=== PATIENT | male | born 1965 | race Caucasian/White ===

== ENCOUNTER 2021-06-25 15:11 | Emergency (ER) | payer OTHER ==
[~2021-06-25] VITALS: Ht 167.6 cm; Wt 86.2 kg
[~2021-06-25 15:11] MED LIST: PERCOCET; TERA1 PO; XANEX
[2021-06-25] MEDS ORDERED: Prozac20 MG PO ×2 (16:26→16:36)
[2021-06-25] MEDS ORDERED: Prozac40 MG PO ×2 (16:26→16:36)
== END 2021-06-25 16:27 | disposition home or self-care (01) ==
LOC: ER 15:11
DX: F41.9 Anxiety disorder, unspecified (principal); F32.A Depression, unspecified; Z76.0 Encounter for issue of repeat prescription
CPT/HCPCS: 99281

== ENCOUNTER 2021-10-20 11:37 | Day surgery (SDC) | payer OTHER ==
[~2021-10-20] VITALS: Ht 170.2 cm; Wt 100.5 kg
[~2021-10-20 11:37] MED LIST changes: +Prozac20 MG PO; +Prozac40 MG PO
[2021-10-20] MEDS ORDERED: FAMO20 (13:06)
[2021-10-20] MEDS ORDERED: OXCARBAZEPINE150 M2 PO (13:06)
[2021-10-20] MEDS ORDERED: ATOR10 (13:08)
[2021-10-20] MEDS ORDERED: Amlodipine Bes2.5 MG (13:08)
[2021-10-20] MEDS ORDERED: TAMS.4ER PO (13:08)
[2021-10-20] MEDS ORDERED: ZYRTEC10 M3 (13:08)
[2021-10-20] MEDS ORDERED: LOSA50 PO (13:09)
[2021-10-20] MEDS ORDERED: GABA300 PO (13:10)
[2021-10-20] MEDS ORDERED: FINA5 (13:10)
[2021-10-20] MEDS ORDERED: Prozac40 MG PO (13:11)
--- NOTE | 2021-10-20 18:40 | NUR ---
10/20/21 184 MARINE LOZANO LATE ENTRY: CHARTED VITALS AND PAIN SCORE AND MEDICATION GIVEN ON VITAL RECORD ON WRONG PATIENT. TCR
--- NOTE | 2021-10-20 18:48 | NUR ---
10/20/211847 SULTANA FRANCISCO VERY HALLE PT. NO C/O PAIN.
== END 2021-10-20 17:00 | disposition home or self-care (01) ==
LOC: ORSCSDS 11:37
PROVIDERS: Orthopaedic Surgery
PROC: 01N50ZZ Release Median Nerve, Open Approach (ICD-10-PCS; principal; 2021-10-20 12:45)
DX: G56.02 Carpal tunnel syndrome, left upper limb (principal); F41.8 Other specified anxiety disorders; I10 Essential (primary) hypertension; K21.9 Gastro-esophageal reflux disease without esophagitis; E66.9 Obesity, unspecified; Z68.34 Body mass index [BMI] 34.0-34.9, adult; Z79.899 Other long term (current) drug therapy
CPT/HCPCS: J0690; J2250; J2704; J3010

== ENCOUNTER 2022-03-04 15:43 | Emergency (ER) | payer OTHER ==
[~2022-03-04 15:43] MED LIST changes: +ATOR10; +Amlodipine Bes2.5 MG; +FAMO20; +FINA5; +GABA300 PO; +LOSA50 PO; +OXCARBAZEPINE150 M2 PO; +TAMS.4ER PO; +ZYRTEC10 M3
[2022-03-04 17:38] LABS: BASOPHILS ABSOLUTE AUTO 0.05 K/mm3 (0.00-0.23); BASOPHILS PERCENT AUTO 1 % (0-2); EOSINOPHILS ABSOLUTE AUTO 0.08 K/mm3 (0.00-0.68); EOSINOPHILS PERCENT AUTO 1 % (0-6); Hematocrit 38.9 % (37.0-53.0); Hemoglobin 12.5 g/dL (13.5-17.5); IMMATURE GRAN ABSOLUTE AUTO 0.07 K/mm3 (0.00-0.10); IMMATURE GRAN PERCENT AUTO 1 % (0-1); LYMPHOCYTES ABSOLUTE AUTO 1.06 K/mm3 (0.84-5.20); LYMPHOCYTES PERCENT AUTO 12 % (21-46); MONOCYTES ABSOLUTE AUTO 0.75 K/mm3 (0.16-1.47); MONOCYTES PERCENT AUTO 8 % (4-13); Mean Corpuscular HGB Conc 32.1 g/dL (31.5-36.5); Mean Corpuscular Volume 90 fL (80-100); Mean Platelet Volume 10.6 fL (9.1-12.4); NEUTROPHILS ABSOLUTE AUTO 6.95 K/mm3 (1.96-9.15); NEUTROPHILS PERCENT AUTO 78 % (41-73); Platelet Count 285 K/mm3 (150-400); RDW Standard Deviation 46.5 fL (35.1-46.3); Red Blood Cell Count 4.31 M/mm3 (4.30-5.90); White Blood Cell Count 8.96 K/mm3 (4.00-11.30)
[2022-03-04 17:41] LABS: Source, Urine Clean Catch
[2022-03-04 17:48] LABS: Appearance, Urine Clear (Clear); Bilirubin, Urine Neg (Neg); Blood, Urine Neg (Neg); Color, Urine Yellow (P-Yellow); Glucose Qualitative, Urine Neg (Neg); Ketones, Urine Neg (Neg); Leukocyte Esterase, Urine Neg (Neg); Nitrite, Urine Neg (Neg); Protein, Urine 1+ (Neg); Specific Gravity, Urine 1.015 (1.003-1.022); Urobilinogen, Urine NORM (Normal)
[2022-03-04 18:16] LABS: Magnesium, Blood 2.4 mg/dL (1.6-2.4)
[2022-03-04 18:17] LABS: Albumin, Blood 3.6 g/dL (3.4-5.0); Bilirubin, Total 0.5 mg/dL (0.1-1.0); Bun/Creatinine Ratio 13.5 (12.0-20.0); Calcium, Blood 9.2 mg/dL (8.5-10.1); Creatinine, Blood 2.15 mg/dL (0.60-1.20); Globulin, Blood 3.7 g/dL (2.2-4.0); Potassium, Blood 3.8 mmol/L (3.5-5.5); Total Protein, Blood 7.3 g/dL (6.4-8.2)
[2022-03-04 18:18] LABS: U Amphetamine Screen DETECTED; U Barbituate Screen Not Detected; U Benzodiazapine Screen DETECTED; U Buprenorphine Screen Not Detected; U Cannabinoids Screen Not Detected; U Cocaine Screen Not Detected; U Methadone Screen Not Detected; U Methamphetamine Screen DETECTED; U Opiates Screen Not Detected; U Oxycodone Screen Not Detected; U Phencyclidine Screen Not Detected; U Propoxyphene Screen Not Detected
== END 2022-03-04 21:35 | disposition home or self-care (01) ==
LOC: ER 15:43
PROVIDERS: Student in an Organized Health Care Education/Training Program
DX: R11.2 Nausea with vomiting, unspecified (principal); I10 Essential (primary) hypertension; G47.33 Obstructive sleep apnea (adult) (pediatric); Z72.0 Tobacco use
CPT/HCPCS: 80053; 83735; 84484; 85025; 93005; 93010; 96374; 99284-25; A9270; J1885

== ENCOUNTER 2022-05-06 16:58 | Emergency (ER) | payer OTHER ==
[~2022-05-06] VITALS: Ht 170.2 cm; Wt 90.7 kg
[2022-05-06] MEDS ORDERED: SULTRIDS PO (18:34)
[2022-05-06] MEDS ORDERED: CEPH500 PO (18:34)
== END 2022-05-06 18:47 | disposition home or self-care (01) ==
LOC: ER 16:58
DX: L03.113 Cellulitis of right upper limb (principal)
CPT/HCPCS: A9270

== ENCOUNTER 2022-09-17 12:51 | Inpatient (IN) | payer OTHER ==
[~2022-09-17] VITALS: Ht 175.3 cm; Wt 76.7 kg
[~2022-09-17 12:51] MED LIST changes: -ATOR10; +ATOR10 PO; -Amlodipine Bes2.5 MG; +Amlodipine Bes2.5 MG PO; +CEPH500 PO; -FAMO20; +FAMO20 PO; -FINA5; +FINA5 PO; -LOSA50 PO; +LOSARTAN POTAS100 MG PO; +SULTRIDS PO; -ZYRTEC10 M3; +ZYRTEC10 M3 PO
[2022-09-17 13:14] LABS: PCO2 Arterial 50.7 mmHg (35-45); PO2 Arterial 258 mmHg (80-100); pH Blood Arterial 7.28 (7.35-7.45)
[2022-09-17 13:40] LABS: BASOPHILS ABSOLUTE AUTO 0.03 K/mm3 (0.00-0.23); BASOPHILS PERCENT AUTO 0 % (0-2); EOSINOPHILS ABSOLUTE AUTO 0.02 K/mm3 (0.00-0.68); EOSINOPHILS PERCENT AUTO 0 % (0-6); Hemoglobin 12.7 g/dL (13.5-17.5); IMMATURE GRAN ABSOLUTE AUTO 0.14 K/mm3 (0.00-0.10); IMMATURE GRAN PERCENT AUTO 2 % (0-1); LYMPHOCYTES ABSOLUTE AUTO 1.14 K/mm3 (0.84-5.20); LYMPHOCYTES PERCENT AUTO 15 % (21-46); MONOCYTES ABSOLUTE AUTO 0.36 K/mm3 (0.16-1.47); MONOCYTES PERCENT AUTO 5 % (4-13); Mean Corpuscular HGB 27.1 pg (26.0-34.0); Mean Corpuscular HGB Conc 30.2 g/dL (31.5-36.5); Mean Corpuscular Volume 90 fL (80-100); Mean Platelet Volume 9.8 fL (9.1-12.4); NEUTROPHILS ABSOLUTE AUTO 5.77 K/mm3 (1.96-9.15); NEUTROPHILS PERCENT AUTO 77 % (41-73); Platelet Count 275 K/mm3 (150-400); RDW Coefficient Variation 15.5 % (11.7-14.2); RDW Standard Deviation 51.8 fL (35.1-46.3); Red Blood Cell Count 4.68 M/mm3 (4.30-5.90); White Blood Cell Count 7.46 K/mm3 (4.00-11.30)
[2022-09-17 13:59] LABS: Albumin, Blood 3.3 g/dL (3.4-5.0); Albumin/Globulin Ratio 0.7 (0.8-1.8); Bilirubin, Total 0.5 mg/dL (0.1-1.0); Bun/Creatinine Ratio 19.1 (12.0-20.0); Calcium, Blood 9.4 mg/dL (8.5-10.1); Creatinine, Blood 1.62 mg/dL (0.60-1.20); Globulin, Blood 4.8 g/dL (2.2-4.0); Potassium, Blood 4.6 mmol/L (3.5-5.5); Total Protein, Blood 8.1 g/dL (6.4-8.2)
[2022-09-17 14:01] LABS: U Amphetamine Screen DETECTED; U Barbituate Screen Not Detected; U Benzodiazapine Screen Not Detected; U Buprenorphine Screen Not Detected; U Cannabinoids Screen Not Detected; U Cocaine Screen Not Detected; U Methadone Screen Not Detected; U Methamphetamine Screen DETECTED; U Opiates Screen Not Detected; U Oxycodone Screen Not Detected; U Phencyclidine Screen Not Detected; U Propoxyphene Screen Not Detected
[2022-09-17 14:15] LABS: Salicylate <1.7 mg/dL (2.8-20.0)
[2022-09-17 14:31] LABS: Acetaminophen, Random <2.0 ug/mL (10.0-30.0)
[2022-09-17 15:56] LABS: Base Excess Venous -0.5 mmol/L; Bicarbonate Venous 23.4 mmol/L (24.0-30.0); PCO2 Venous 50.8 mmHg (38-42); pH Blood Venous 7.31 (7.34-7.37)
[2022-09-17 16:12] LABS: Source, Urine Foley catheter
[2022-09-17 16:48] LABS: Appearance, Urine Hazy (Clear); Bilirubin, Urine Neg (Neg); Blood, Urine 4+ (Neg); Color, Urine Yellow (P-Yellow); Glucose Qualitative, Urine Neg (Neg); Ketones, Urine Neg (Neg); Leukocyte Esterase, Urine 1+ (Neg); Nitrite, Urine Neg (Neg); Protein, Urine 2+ (Neg); Specific Gravity, Urine 1.025 (1.003-1.022); Urobilinogen, Urine NORM (Normal)
--- NOTE | 2022-09-17 16:57 | NUR ---
JONO ARRIVES TO US AT 1515 FROM THE ED, PT HAS EVIDENCE OF BROWN/GREEN EMESIS, IRAHETA DRAINING TO GRAVITY, RESTRAINTS IN PLACE, VENTILATOR AT 20/450 PEEP 5, FIO2 40%. PT IS NOT RESPONSIVE TO COMMANDS OR TO VOICE. PT DOES W/D TO PAIN. I/O IN THE RIGHT KAY, 20G DEB, PG PLACED BY CHARGE NURSE. FLUID BOLUS GIVEN PER ORDERS FOR LOW BP, NOREPINEPHRINE STARTED PER ORDER OF ADMIT PROVIDER, VERSED DRIP TURNED OFF TO ASSESS PT RESPONSE. PT CONTINUES WITH NO PURPOSEFUL MOVEMENT, SOME "BUCKING OF THE VENTILATOR". ORDERS PROPOFOL IN PLACE OF THE VERSED DRIP, STARTED AT 15MCG TO HELP TOLERATE THE VENTILATOR. RESTRAINTS REMOVED PT WITHOUT ANY PURPOSEFUL MOVEMENTS. SEE FLOWSHEET FOR DETAILS.
[2022-09-17 17:08] LABS: Red Blood Cells, Urine 25-50 /hpf (0-2); Transitional Epithelial Cells Rare /hpf (0-Rare)
[2022-09-17 17:09] LABS: Bacteria Mod /hpf; Renal Epithelial Rare /hpf (0-Rare); Squamous Epithelial Cells Not Seen /hpf (Few)
--- NOTE | 2022-09-17 18:07 | NUR ---
GIRLFRIEND "TRENT" CALLS IN TO CHECK ON HIM. STATES HE DOESN'T HAVE ANY FAMILY. SHE IS TOLD THE NAME OF THE AUNT, STATES THAT SHE DOESN'T KNOW WHO THAT IS BUT WILL TALK TO THE ROOMMATE,
--- NOTE | 2022-09-17 18:30 | NUR ---
VENTILATOR ALARMS BEGAN SOUNDING, UPON ASSESSMENT OF PATIENT HE WAS NOT GETTING HIS VOLUMES. ATTEMPTED ENDOTRACHEAL SUCTIONING WITH THICK COTO BROWN RETURN, STILL UNABLE TO GET GOOD VOLUMES, BEGAN BAGGING PATIENT AND CALLED RESP.THERAPY. TARYN CAME AND CHANGED VENT SETTINGS TO PRESSURE CONTROL AND ABLE TO GET IMPROVED VOLUMES. SATS RETURNED TO 98-99%.
[2022-09-18 05:03] LABS: PCO2 Arterial 36.7 mmHg (35-45); PO2 Arterial 88.5 mmHg (80-100); pH Blood Arterial 7.48 (7.35-7.45)
[2022-09-18 05:33] LABS: Hematocrit 31.3 % (37.0-53.0); Hemoglobin 10.3 g/dL (13.5-17.5); Mean Corpuscular HGB 27.7 pg (26.0-34.0); Mean Corpuscular HGB Conc 32.9 g/dL (31.5-36.5); Mean Platelet Volume 9.5 fL (9.1-12.4); NRBC ABSOLUTE 0.03 K/mm3 (0.00-0.02); NRBC Auto 0.5 /100 WBC (0.0-0.2); Platelet Count 217 K/mm3 (150-400); RDW Coefficient Variation 15.9 % (11.7-14.2); RDW Standard Deviation 48.8 fL (35.1-46.3); Red Blood Cell Count 3.72 M/mm3 (4.30-5.90); White Blood Cell Count 6.03 K/mm3 (4.00-11.30)
[2022-09-18 05:55] LABS: Mean Corpuscular Volume 85 fL (80-100)
[2022-09-18 06:05] LABS: Magnesium, Blood 2.3 mg/dL (1.6-2.4)
[2022-09-18 06:11] LABS: Albumin, Blood 2.4 g/dL (3.4-5.0); Albumin/Globulin Ratio 0.7 (0.8-1.8); Bilirubin, Total 0.6 mg/dL (0.1-1.0); Bun/Creatinine Ratio 27.2 (12.0-20.0); Creatinine, Blood 1.14 mg/dL (0.60-1.20); Globulin, Blood 3.6 g/dL (2.2-4.0); Potassium, Blood 4.3 mmol/L (3.5-5.5)
--- NOTE | 2022-09-18 06:45 | NUR ---
SHIFT SUMMARY NO ACUTE CHANGES DURING NOC. REMAINS INTUBATED- AC/PC RATE 20, PI 25, PEEP 5, FIO2 35%. SEDATED WITH PROPOFOL BETWEEN 15-25MCG/KG/AR. NOW INFUSING AT 25MCG/KG/MIN. OPENS EYES TO STIMULI. MINIMAL MOVEMENT NOTED IN UPPER EXTREMITIES. NOT FOLLOWING ANY COMMANDS. WITHDRAWS EXTREMITIES TO NOXIOUS STIMULI. CLARITA. OG TO LIS WITH SCANT DRAINAGE. IRAHETA PATENT AND DRAINING. LR INFUSING AT 125MLS/HR. INCONTINENT OF LOOSE BROWN STOOL X 2 DURING SHIFT. VSS. MONITOR SHOWS NSR, RATE 80s-90s. WILL REPORT TO ONCOMING RN WHEN AVAILABLE.
[2022-09-18 07:11] LABS: BAND PERCENT MAN 26 % (0-8); BASOPHILS PERCENT MAN 0 % (0-2); EOSINOPHILS ABSOLUTE MAN 0.06 K/mm3 (0.00-0.68); EOSINOPHILS PERCENT MAN 1 % (0-6); LYMPHOCYTES ABSOLUTE MAN 0.66 K/mm3 (0.84-5.20); LYMPHOCYTES PERCENT MAN 11 % (21-46); MONOCYTES PERCENT MAN 5 % (4-13); SEG NEUTROPHILS PERCENT MAN 57 % (41-73); TOTAL CELLS COUNTED 100
--- NOTE | 2022-09-18 18:18 | NUR ---
Shift summary. Pt rested in bed throughout shift, on ventilator, see RT assessments for settings. Titrated propofol off early in the shift, pt slowly became more responsive throughout shift, began to follow commands occasionally and focus on staff. At approximately 1630 pt became very agitated, thrashing in bed, trying to reach his ETT and pull it out. Ativan and fentanyl given, see emar. Propofol restarted for sedation, currently infusing at 25 mcg/kg/min. Pt sedated currently, appears comfortable. LR infusing at 100 ml/hr. OG tube in place. Connolly catheter in place. SWB restraints in place. See shift assessment for further details. Will continue to monitor and report off to susu ANNE.
[2022-09-19 04:43] LABS: BASOPHILS ABSOLUTE AUTO 0.02 K/mm3 (0.00-0.23); BASOPHILS PERCENT AUTO 0 % (0-2); EOSINOPHILS ABSOLUTE AUTO 0.16 K/mm3 (0.00-0.68); EOSINOPHILS PERCENT AUTO 3 % (0-6); Hematocrit 30.8 % (37.0-53.0); Hemoglobin 10.2 g/dL (13.5-17.5); IMMATURE GRAN ABSOLUTE AUTO 0.03 K/mm3 (0.00-0.10); IMMATURE GRAN PERCENT AUTO 1 % (0-1); LYMPHOCYTES ABSOLUTE AUTO 1.19 K/mm3 (0.84-5.20); LYMPHOCYTES PERCENT AUTO 20 % (21-46); MONOCYTES PERCENT AUTO 7 % (4-13); Mean Corpuscular HGB 27.6 pg (26.0-34.0); Mean Corpuscular HGB Conc 33.1 g/dL (31.5-36.5); Mean Corpuscular Volume 83 fL (80-100); Mean Platelet Volume 9.5 fL (9.1-12.4); NEUTROPHILS ABSOLUTE AUTO 4.03 K/mm3 (1.96-9.15); NEUTROPHILS PERCENT AUTO 69 % (41-73); Platelet Count 194 K/mm3 (150-400); RDW Standard Deviation 49.1 fL (35.1-46.3); White Blood Cell Count 5.83 K/mm3 (4.00-11.30)
[2022-09-19 05:02] LABS: Magnesium, Blood 1.9 mg/dL (1.6-2.4)
[2022-09-19 05:03] LABS: Bun/Creatinine Ratio 24.9 (12.0-20.0); Calcium, Blood 8.4 mg/dL (8.5-10.1); Creatinine, Blood 0.92 mg/dL (0.60-1.20); Phosphorus, Blood 1.3 mg/dL (2.5-4.9); Potassium, Blood 3.6 mmol/L (3.5-5.5)
--- NOTE | 2022-09-19 06:48 | NUR ---
SHIFT SUMMARY NO ACUTE CHANGES. REMAINS INTUBATED- AC/PC RATE 20, PI 25, PEEP 5, FIO2 35%. SEDATED WITH PROPOFOL AT 25MCG/KG/MIN T/O NOC. MEDICATED WITH ATIVAN 2MG IV X 1 DOSE FOR AGITATION AND FENTANYL 50MCG IV X 1 DOSE FOR NOTED GRIMACING. VSS. MONITOR SHOWS NSR, RATE 90S. TMAX 99.7. OG TO LIS WITH SMALL AMOUNT OF YELLOWISH-GREEN DRAINAGE. INCONTINENT OF LOOSE, PASTY STOOL X 2. IRAHETA PATENT AND DRAINING TO GRAVITY. LR INFUSING AT 100MLS/HR PER ORDER. WILL REPORT TO ONCOMING WHEN AVAILABLE.
--- NOTE | 2022-09-19 07:18 | NUR ---
Assumed care. Report received from nightshift RN. Pt in bed, sedated and ventilated via ETT. Vent settings: AC/PC 20/25/5/35%. Propofol infusing at 25 mcg/kg/min, LR infusing at 100 ml/hr. Connolly catheter in place. No acute needs ATT. Continue to monitor.
--- NOTE | 2022-09-19 18:41 | NUR ---
Shift summary. Pt rested in bed throughout shift, extubated at 1620 with good results. On 02 via NC at 2 L/min. Pt is awake and alert, following commands, does not remember events leading up to hospitalization. See assessments/notes for further details. Will continue to monitor and report off to susu ANNE.
--- NOTE | 2022-09-19 20:15 | NUR ---
ASSUMPTION OF CARE ASSUMED CARE OF PATIENT @ 1915. UPON ASSESSMENT, PATIENT TEARFUL, SPEAKING WITH HIS GILALINRIEND AT BEDSIDE. FOLLOWED SIMPLE COMMANDS. ORIENTED TO SELF ONLY. PER GIRLFRIEND, PATIENT STATED TO HER THAT HE WAS SEEING "DARK THINGS" THAT WERE INTENDING TO HARM HIM. PATIENT COUGHING, AND SUBSEQUENTLY REPORTING PAIN IN HIS CHEST WALL. MEDICATED WITH PRN FENTANYL. PATIENT BECAME INCREASINGLY MORE AGITATED, YELLING AT STAFF, STATING THAT HE WANTED TO LIVE AND SOMETHING WAS TRYING TO KILL HIM. RESISTIVE TO CARE AND UNABLE TO REDIRECT. PATIENT MORE TACHYCARDIC AND TACHYPNIC, WELL HYPERTENSIVE. DR MUNIZ AT BEDSIDE TO EVALUATE; GIVEN ATIVAN AND RECEIVED ORDERS FOR PRECEDEX GTT.
[2022-09-20 03:42] LABS: BASOPHILS ABSOLUTE AUTO 0.02 K/mm3 (0.00-0.23); BASOPHILS PERCENT AUTO 0 % (0-2); EOSINOPHILS ABSOLUTE AUTO 0.17 K/mm3 (0.00-0.68); EOSINOPHILS PERCENT AUTO 3 % (0-6); Hematocrit 32.9 % (37.0-53.0); Hemoglobin 10.9 g/dL (13.5-17.5); IMMATURE GRAN ABSOLUTE AUTO 0.04 K/mm3 (0.00-0.10); IMMATURE GRAN PERCENT AUTO 1 % (0-1); LYMPHOCYTES ABSOLUTE AUTO 0.86 K/mm3 (0.84-5.20); LYMPHOCYTES PERCENT AUTO 14 % (21-46); MONOCYTES PERCENT AUTO 8 % (4-13); Mean Corpuscular HGB 27.7 pg (26.0-34.0); Mean Corpuscular HGB Conc 33.1 g/dL (31.5-36.5); Mean Corpuscular Volume 84 fL (80-100); Mean Platelet Volume 9.4 fL (9.1-12.4); NEUTROPHILS ABSOLUTE AUTO 4.69 K/mm3 (1.96-9.15); NEUTROPHILS PERCENT AUTO 75 % (41-73); Platelet Count 225 K/mm3 (150-400); RDW Coefficient Variation 15.6 % (11.7-14.2); RDW Standard Deviation 47.7 fL (35.1-46.3); Red Blood Cell Count 3.93 M/mm3 (4.30-5.90); White Blood Cell Count 6.28 K/mm3 (4.00-11.30)
[2022-09-20 04:01] LABS: Bun/Creatinine Ratio 16.2 (12.0-20.0); Calcium, Blood 8.3 mg/dL (8.5-10.1); Creatinine, Blood 0.86 mg/dL (0.60-1.20); Potassium, Blood 3.6 mmol/L (3.5-5.5)
--- NOTE | 2022-09-20 06:26 | NUR ---
SHIFT SUMMARY OVERNIGHT, PRECEDEX STARTED FOR AGITATION. PATIENT MUCH MORE CALM AND REDIRECTABLE SHIFT PROGRESSED. ALERT TO SELF, AND INTERMITTENTLY TO PLACE. ZAMARRIPA; FOLLOWS COMMANDS. C/O CHEST AND RIB PAIN; MEDICATED WITH FENTANYL, SEE MAR. PAIN WELL CONTROLLED AT THIS TIME. MONITOR SHOWING SR/ST, HR 90-100S. SBP 120-150S. 2L NC. PATIENT HAS FREQUENT, NON-PRODUCTIVE COUGH, WHICH EXACERBATES HIS RIB PAIN. NPO. X1 SMALL BM. OVER 4L URINE OUTPUT PER IRAHETA. LR AND LOW DOSE PRECEDEX INFUSING AT THIS TIME. SPOKE TO BOTH PATIENT'S GIRLFRIEND TRENT WELL LUIS, WHOM PATIENT REFERS TO HIS MOTHER. BOTH UPDATED ON PATIENT'S CONDITION AND PLAN OF CARE.
--- NOTE | 2022-09-20 18:32 | NUR ---
Shift summary. Assumed care at approximately 0700. Pt rested in bed throughout shift, no acute events. Pt became tearful and agitated this afternoon, unable to redirect. Precedex infusing at 0.7 mcg/kg/hr. LR TKO. VS stable, see chart for further information. Will continue to monitor and report off to susu ANNE.
[2022-09-20 20:17] LABS: Vancomycin, Trough 12.2 ug/mL (5.0-10.0)
--- NOTE | 2022-09-20 22:43 | NUR ---
ASSUMPTION OF CARE AT BEGINNING OF SHIFT, PATIENT DISORIENTED. AGITATED, TRYING TO CLIMB OVER SIDE RAILS, STATING HE "NEEDS TO HAVE IT!" BUT UNABLE TO SPECIFY HIS NEEDS. UNABLE TO REDIRECT. GIVEN X1 DOSE OF ATIVAN. PRECEDEX CONTINUES AT 0.7MCG/KG/MIN. BECOMES VERY TEARFUL AND RESTLESS WHEN ATTEMPTING TO REORIENT TO PLACE, SITUATION. MONITOR SHOWING SR. HYPERTENSIVE, SBP 150S. 2L NC. WILL CONTINUE TO MONITOR.
[2022-09-21 04:14] LABS: BASOPHILS ABSOLUTE AUTO 0.03 K/mm3 (0.00-0.23); BASOPHILS PERCENT AUTO 1 % (0-2); EOSINOPHILS ABSOLUTE AUTO 0.17 K/mm3 (0.00-0.68); EOSINOPHILS PERCENT AUTO 3 % (0-6); Hematocrit 34.2 % (37.0-53.0); Hemoglobin 11.5 g/dL (13.5-17.5); IMMATURE GRAN ABSOLUTE AUTO 0.09 K/mm3 (0.00-0.10); IMMATURE GRAN PERCENT AUTO 2 % (0-1); LYMPHOCYTES ABSOLUTE AUTO 0.86 K/mm3 (0.84-5.20); LYMPHOCYTES PERCENT AUTO 15 % (21-46); MONOCYTES ABSOLUTE AUTO 0.67 K/mm3 (0.16-1.47); MONOCYTES PERCENT AUTO 11 % (4-13); Mean Corpuscular HGB 27.6 pg (26.0-34.0); Mean Corpuscular HGB Conc 33.6 g/dL (31.5-36.5); Mean Corpuscular Volume 82 fL (80-100); Mean Platelet Volume 9.4 fL (9.1-12.4); NEUTROPHILS PERCENT AUTO 69 % (41-73); Platelet Count 260 K/mm3 (150-400); RDW Coefficient Variation 14.8 % (11.7-14.2); RDW Standard Deviation 44.5 fL (35.1-46.3); Red Blood Cell Count 4.16 M/mm3 (4.30-5.90); White Blood Cell Count 5.92 K/mm3 (4.00-11.30)
[2022-09-21 04:31] LABS: Bun/Creatinine Ratio 17.4 (12.0-20.0); Calcium, Blood 8.9 mg/dL (8.5-10.1); Creatinine, Blood 0.75 mg/dL (0.60-1.20); Potassium, Blood 3.7 mmol/L (3.5-5.5)
--- NOTE | 2022-09-21 06:44 | NUR ---
SHIFT SUMMARY PATIENT REMAINED CONFUSED OVERNIGHT. INTERMITTENTLY AGITATED, PULLING AT WIRES, CLIMBING OUT OF BED, DELIRIOUS. DIFFICULT TO REDIRECT AT TIMES. CONTINUES ON PRECEDEX AND GIVEN PRN ATIVAN X2. MEDICATED FOR RIB PAIN S/P COMPRESSIONS WITH PRN FENTANYL. MONITOR SHOWING SR. HYPERTENSIVE, SBP 120-160S. REQUIRED PRN HYDRALAZINE X2. NPO. X2 BMS. ADEQUATE URINE OUTPUT VIA IRAHETA. NO FURTHER CONCERNS.
--- NOTE | 2022-09-21 12:22 | NUR ---
JONO BECAME VERY TEARFUL WHILE WORKING WITH PT/OT, HE WAS BEING REORIENTED TO THE SITUATION AND HIS SURROUNDINGS. HE IS UNABLE TO MAKE FINE DEXTERITY MOVEMENTS, ie GRABBING THE TISSUE AND WIPING HIS NOSE. HE MOVES HIS ARMS AT THE ELBOWS AND IS UNABLE TO DO FLEX/EXTENSION WITH THE WRIST. HE IS BEING FED HIS MECHANICAL SOFT LUNCH HE DOESN'T HAVE ANY TEETH. OVERALL CLEARING AND COOPERATIVE. ABLE TO FOLLOW SIMPLE COMMANDS. CONTINUES TO NOT REMEMBER WHAT WAS TOLD TO HIM MOMENTS BEFORE.
--- NOTE | 2022-09-21 16:21 | NUR ---
Patient is tearful as he explains how confused he is about what happened, how he go to the hospital and what the plan of care is. He tells me he has a girlfriend and a dtr. He tells me that he he is alone and scared. I explain about our staff and our compassion and care for his personhood and his medical recovery. I provide therapeutic listening, a calming presence and hold his hand to reassure him. He voices much appreciation and shows signs of being comforted. I will continue to remain available to patient and fmaily.
--- NOTE | 2022-09-21 18:38 | NUR ---
JONO BEGAN THE DAY DIFFICULT TO AROUSE AND UNABLE TO ANSWER QUESTIONS R/T HIS MEMORY. HE IS NOW ABLE TO RECALL FAMILY MEMBERS AND FRIENDS, HE HAS BEEN ABLE TO SPEAK ON THE PHONE WITH TWO DIFFERENT PEOPLE. HE CONTINUES TO BE FOR- GETFUL AND NEED REORIENTATION AND REDIRECTION. HE IS ABLE TO ASSIST WITH HIS CARE FOR LINEN CHANGE AND USE OF THE BEDPAN. HE HAS HAD 4 BM'S THIS SHIFT AND OVER 1L OF URINE OUTPUT. HE WAS ABLE TO EAT LUNCH AND DINNER OF MECHANICAL SOFT DIET. HE HAS NOT BEEN GIVEN ANY ADJUNCT TO THE PRECEDEX WHICH IS DOWN TO 0.4 MCG AND HE HAS DONE WELL TODAY. HE HAS BEEN VERY EMOTIONAL INREGARDS TO LEARNING WHAT TRANSPIRED FOR HIM TO BE HERE. HE CONTINUES TO TRY TO MAKE HIS NEEDS KNOWN.
--- NOTE | 2022-09-21 20:55 | NUR ---
ASSUMED CARE: Patient cooperative and pleasant but confused. Oriented to self only and occasionally to place with severe short term memory loss. 2029- Requesting pain meds for back pain but declines tylenol. Also restless and requests sleeping pill. Called Dr. Townsend for orders. 2049- Medicated for pain and insomnia. Patient starting to get more restless and confused, does not know he is in the hospital and is trying to climb out of bed.
--- NOTE | 2022-09-22 04:58 | NUR ---
SHIFT SUMMARY: Patient progressing well overnight. Able to wean off oxygen. Precedex off as of 0500 this AM. He is mildly anxious and restless, but not agitated or aggressive. He complains of pain despite receiving pain meds, does not appear painful. Short term memory is extremely poor. Repeats questions and conversations, does not remember information from 1 minute prior and needs frequent reorienting to surroundings. Only consistently oriented to self. Still weak/ deconditioned with poor fine motor skill. Difficulty grasping spoon to feed himself
[2022-09-22 05:09] LABS: Albumin, Blood 2.6 g/dL (3.4-5.0); Anion Gap 4 mmol/L (6-16); Blood Urea Nitrogen 13 mg/dL (8-24); Bun/Creatinine Ratio 15.2 (12.0-20.0); CO2, Blood 27 mmol/L (21-32); Calcium, Blood 9.2 mg/dL (8.5-10.1); Chloride, Blood 105 mmol/L (98-108); Creatinine, Blood 0.86 mg/dL (0.60-1.20); Glomerular Filtration Rate 102 (60-); Glucose, Blood 137 mg/dL (70-99); Potassium, Blood 3.9 mmol/L (3.5-5.5); Sodium, Blood 136 mmol/L (136-145)
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
--- NOTE | 2022-09-22 13:37 | NUR ---
"Spiritual Care | Nurse Request Pt. is under the care of another vascular nurse, but I did talk to him for a couple minutes. Pt. displayed evidence of confusion regarding where he was located. This vascular nurse gave encouragement to Pt. and supported the theraputic care of his nursing team. Contacted the Pts. vascular nurse for further follow up."
--- NOTE | 2022-09-22 14:30 | NUR ---
FALL/MEDICAL TRANSFER/SHIFT SUMMARY NEURO REMAINS UNCHANGED. PT ORIENTED TO SELF ONLY. NEEDS FREQUENT REORIENTATION. IMPULSIVE. TAB ALARM PLACED FOR SAFETY. PT FREQUENTLY GETS OUT OF CHAIR. BY END OF SHIFT, PT REPLACING ALARMING DEVICE ON TAB ALARM TO SUSPEND ALARM. CAMERA MONITORING IN PLACE, INCREASED STAFF AWARENESS AND VISUALIZATION. PT HAD TWO FALLS, ONE SLIDE FROM RECLINER, ONE FALL FORWARD. SEE FALL ASSESSMENTS. LUNGS DIM, ON RA. SR, RATE 90'S. PT WORKED c PT/OT/SPEECH THIS SHIFT. CONTINUES TO HAVE POOR FINE MOTOR CONTROL. REPORT TO ZENA ANNE. PT TRANSFERRED TO [facility].
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
--- NOTE | 2022-09-22 14:57 | NUR ---
FALL AND TRANSFER PT FELL X2 IN ICU. PRIOR TO TRANSFER, ICU CHARGE CALLED, AND REQUESTED A BEDSIDE SITTER FOR PT. WAS AGREED UPON PRIOR TO TRANSFER. AFTER ARRIVAL THE SITTER WAS THEN DECLINED BY ADMIN. BED ALARM ON. RAILS X3 UP, SLIPPY SOCKS ON. BED LOW, CALL LIGHT WITH IN REACH. REORIENTING CONSTANTLY. POOR RECALL. CONTINUE POC.
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
--- NOTE | 2022-09-22 18:05 | NUR ---
BEHAVIOR GIRLFRIEND AT BEDSIDE FOR ABOUT 30 MINUTES. PT IS ESCALATING SLOWLY. MORE VULGAR, MORE DEMANDING. MORE SWEARING. HE JUST DEMANDED THAT SHE "SUCK MY MARGARET." ATIVAN 2MG AND FENTANYL 25 MCH ALREADY GIVEN WHEN THE SWEARING STARTED. CONTINUE POC.
--- NOTE | 2022-09-23 04:55 | NUR ---
PATIENT CONFUSED, PATIENT COMBATIVE AND TRYING TO LEAVE FACILITY AT BEGINNING OF SHIFT, COMPLANING OF LOTS OF PAIN, CALLED DR CR AND CHANGED PAIN MEDICATION ORDERS WHICH SEEMED TO HELP TREMENDOUSLY, ONCE PATIENT MEDICATED APPROPRIATLEY HE WAS ABLE TO SLEEP COMFORTABLY
--- NOTE | 2022-09-23 18:11 | NUR ---
PATIENT SLEPT MOST OF THIS SHIFT. AGITATED THIS AM DURING ASSESSMENT, BUT COOPERATIVE THE REST OF THIS SHIFT. ATE LUNCH AND DINNER WITH ASSISTANCE. ABLE TO MAKE NEEDS KNOWN. 1:1 SITTER THROUGHOUT THE SHIFT. MEDICATED WITH OXYCODONE FOR CHEST PAIN, WITH STATED RELIEF. SKIN INTACT. VSS, ON RA. NO ACUTE CHANGES THIS SHIFT.
[2022-09-23] MEDS ORDERED: COLACE100 MG PO (20:29)
[2022-09-24 09:31] LABS: Hematocrit 43.7 % (37.0-53.0); Mean Corpuscular HGB 27.3 pg (26.0-34.0); Mean Corpuscular Volume 85 fL (80-100); Platelet Count 325 K/mm3 (150-400); RDW Coefficient Variation 15.3 % (11.7-14.2); RDW Standard Deviation 47.9 fL (35.1-46.3); Red Blood Cell Count 5.13 M/mm3 (4.30-5.90); White Blood Cell Count 5.75 K/mm3 (4.00-11.30)
[2022-09-24 09:46] LABS: Albumin, Blood 2.7 g/dL (3.4-5.0); Anion Gap 4 mmol/L (6-16); Blood Urea Nitrogen 14 mg/dL (8-24); Bun/Creatinine Ratio 15.5 (12.0-20.0); CO2, Blood 28 mmol/L (21-32); Chloride, Blood 104 mmol/L (98-108); Creatinine, Blood 0.91 mg/dL (0.60-1.20); Glomerular Filtration Rate 99 (60-); Glucose, Blood 152 mg/dL (70-99); Phosphorus, Blood 4.5 mg/dL (2.5-4.9); Potassium, Blood 4.4 mmol/L (3.5-5.5); Sodium, Blood 136 mmol/L (136-145); Vancomycin, Trough 17.4 ug/mL (5.0-10.0)
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
--- NOTE | 2022-09-24 18:35 | NUR ---
PATIENT HAD A GOOD DAY. WORKED WITH PT AND IS ABLE TO WALK TO RESTROOM WITH GB AND 1-2 ASSIST. GOOD APPETITE, ATE 100% OF ALL MEALS. CONTINENT OF URINE AND STOOL. PLEASANT AND COOPERATIVE WITH CARE. 1:1 SITTER D/C'D, FALL PRECAUTIONS IN PLACE. PATIENT GIVEN ATIVAN X1 TODAY FOR ANXIETY WITH GOOD RELIEF. OXYCODONE USED TO TREAT CHEST PAIN. PATIENT VERY PAINFUL WITH COUGHING. SKIN INTACT. POWERGLIDE TO MARTHA, DOES NOT DRAW. VSS, ON RA. NEEDS ASSISTANCE WITH FEEDING D/T POOR FINE MOTOR SKILLS. PATIENT SWITCHED TO SOFT FINGER FOODS FOR DINNER AND DID MUCH BETTER. SHORT TERM MEMORY POOR, PATIENT FREQUENTLY ASKS SAME QUESTIONS OVER AGAIN. A/O TO SELF AND SOME OF HIS FRIENDS. TYRON HE WAS IN [place] TODAY AND THAT THE YEAR WAS 2020.
--- NOTE | 2022-09-25 05:48 | NUR ---
PT IMPULSIVE, FORGETFUL, REDIRECTABLE, AOX1. PRN OXYCODONE 10 MG GIVEN Q4. ATIVAN 2 MG GIVEN X2. DID NOT SLEEP MUCH. CONTINENT OF BLADDER, NO BM. VERY UNSTEADY GAIT, WALKS WITH GB. BED ALARM IN PLACE, HIGH FALL RISK.
--- NOTE | 2022-09-25 16:18 | NUR ---
SHIFT SUMMARY: PT A&O X2, CONFUSED, COOPERATIVE AND COMMUNICATES WITH STAFF. PT CONFUSED ON TIME AND CURRENT SITUATION. PT AT THE BEGINNING OF THE SHIFT CALM AND COMMUNICATING WITH STAFF SITTING IN THE HALLWAY. PT HAD NO PAIN OR DISCOMFORT. PT TOOK MEDICATION WHOLE WITH WATER. PT AT LUNCH TIME BECAME AGITATED AND ANXIOUS. PT WAS ABLE TO BE CALMLY REASSURED VERBALLY BY STAFF. PT BECAME MODERATLY ANXIOUS AND AGITATED AND RECEVIED ATIVAN 2MG/ML IV. PT VERBALLY STATED WANTING TO LEAVE AMA. CN, JAMES AND PROVIDER NOTIFIED OF PT WANTING TO LEAVE AMA. PT ABLE TO CALM DOWN TO STAYING IN THE HOSPITAL FOR TREATMENT. PT IN ROOM, ANXIOUS, UNSTEADY ON FEET WITH CHAIR ALARM ARMED.
[2022-09-26 05:59] LABS: Hematocrit 41.5 % (37.0-53.0); Hemoglobin 13.4 g/dL (13.5-17.5); Mean Corpuscular HGB 26.8 pg (26.0-34.0); Mean Corpuscular HGB Conc 32.3 g/dL (31.5-36.5); Mean Corpuscular Volume 83 fL (80-100); Mean Platelet Volume 8.9 fL (9.1-12.4); Platelet Count 416 K/mm3 (150-400); RDW Coefficient Variation 14.8 % (11.7-14.2); RDW Standard Deviation 44.9 fL (35.1-46.3); White Blood Cell Count 6.47 K/mm3 (4.00-11.30)
[2022-09-26 06:21] LABS: Anion Gap 6 mmol/L (6-16); Blood Urea Nitrogen 15 mg/dL (8-24); Bun/Creatinine Ratio 18.4 (12.0-20.0); CO2, Blood 28 mmol/L (21-32); Calcium, Blood 9.5 mg/dL (8.5-10.1); Chloride, Blood 105 mmol/L (98-108); Creatinine, Blood 0.82 mg/dL (0.60-1.20); Glomerular Filtration Rate 103 (60-); Glucose, Blood 116 mg/dL (70-99); Phosphorus, Blood 4.7 mg/dL (2.5-4.9); Potassium, Blood 3.6 mmol/L (3.5-5.5); Sodium, Blood 139 mmol/L (136-145)
--- NOTE | 2022-09-26 06:34 | NUR ---
PT FELL X2 LAST NIGHT. NO APPARENT INJURIES. VSS. PLACED PATIENT IN CAROLYN VEST RESTRAINT DUE TO IMPULSIVENESS, CONFUSION, FALLS BUT PATIENT UNTIED ONE SIDE. PLACED PATIENT IN BUE LOCK RESTRAINTS, NONVIOLENT. ATIVAN GIVEN NEARLY Q2, ZYPREXA X1. PATIENT BEGAN TO CALM DOWN NEAR END OF SHIFT, INTERMITTENT EFFORTS TO GET OUT OF BED/RESTRAINTS CONTINUE. CONTINUE TO MONITOR.
--- NOTE | 2022-09-26 08:00 | NUR ---
pt not responding to staff, not oriented, or redirectable, is becoming agitated, ativan given, pt is tuff cuffs, and pulling against them at times, on r/a, lungs clear dim bases, but not cooperative with assessment, no cough noted, hrr, no edema noted, ppp+1, cap refill <3 sec, vs stable, afebrile, iv is power glide to deven site was pulled apart, part that was pulled broken off was under pt, power glide fixed and new dressing applied, flushes well, voids without diff, skin ok, unsteady gait, fall risk, bed alrm activated and sitter in room. call light in reach.
--- NOTE | 2022-09-26 18:01 | NUR ---
removed wrist restraints at 1130, then PT worked with him and ambulated him in the room, he was given ativan a few times, slept for a few hrs today, has been doing ok off restraints, does have a sitter, call light in reach.
--- NOTE | 2022-09-27 03:18 | NUR ---
SHIFT SUMMARY NOC PT A/O TO SELF. PT PLEASANT AND COOPERATIVE WITH CARE. PT REQUIRED 2PA TO WALK TO BATHROOM BUT WAS ABLE TO STAND TO URINATE WITHOUT MISSING COMMODE. PT HAS SITTER STATIONED OUTSIDE OF ROOM FOR DIRECT OBSERVATION TO ENSURE PT SAFETY. PT HAS PG IN MARTHA THAT DOES NOT DRAW. PT IS AWAITING PLACEMENT FOR REHAB BUT PLACEMENT IS PROBLEMATIC DUE TO CURRENT METHAMPHETAMINE USE. PT IS CURRENTLY RESTING WITH BED ALARM ON, BED IN LOWEST POSITION, AND CALL LIGHT WITHIN REACH.
[2022-09-27 06:12] LABS: BASOPHILS ABSOLUTE AUTO 0.09 K/mm3 (0.00-0.23); BASOPHILS PERCENT AUTO 1 % (0-2); EOSINOPHILS ABSOLUTE AUTO 0.26 K/mm3 (0.00-0.68); EOSINOPHILS PERCENT AUTO 3 % (0-6); Hematocrit 41.7 % (37.0-53.0); Hemoglobin 13.6 g/dL (13.5-17.5); IMMATURE GRAN ABSOLUTE AUTO 0.09 K/mm3 (0.00-0.10); IMMATURE GRAN PERCENT AUTO 1 % (0-1); LYMPHOCYTES ABSOLUTE AUTO 1.86 K/mm3 (0.84-5.20); LYMPHOCYTES PERCENT AUTO 25 % (21-46); MONOCYTES ABSOLUTE AUTO 0.57 K/mm3 (0.16-1.47); MONOCYTES PERCENT AUTO 8 % (4-13); Mean Corpuscular HGB 27.2 pg (26.0-34.0); Mean Corpuscular HGB Conc 32.6 g/dL (31.5-36.5); Mean Corpuscular Volume 83 fL (80-100); NEUTROPHILS ABSOLUTE AUTO 4.71 K/mm3 (1.96-9.15); NEUTROPHILS PERCENT AUTO 62 % (41-73); Platelet Count 510 K/mm3 (150-400); RDW Coefficient Variation 15.3 % (11.7-14.2); RDW Standard Deviation 46.2 fL (35.1-46.3); White Blood Cell Count 7.58 K/mm3 (4.00-11.30)
[2022-09-27 06:30] LABS: Bun/Creatinine Ratio 23.6 (12.0-20.0); Calcium, Blood 9.6 mg/dL (8.5-10.1); Creatinine, Blood 0.93 mg/dL (0.60-1.20); Potassium, Blood 4.1 mmol/L (3.5-5.5)
--- NOTE | 2022-09-27 18:38 | NUR ---
SHIFT SUMMARY PT IS ALERT AND ORIENTED TO PERSON. REMAINS CONFUSED ABOUT WHY HE IS HERE AND IS FORGETFUL. NOT IMPULSIVE THIS SHIFT. CALM AND APPROPRIATE. CONSERNED ABOUT THE WHEREABOUTS OF HIS DENTURES AND WHAT WILL HAPPEN TO HIM AFTER HE LEAVES THE HOSPITAL. PT HAS COMPLAINED OF PAIN IN THE CHEST AND BACK, ESPECIALLY WHEN HE COUGHS. TREATED PER EMAR. SITTER WITH PT ALL DAY. BED IS LOWEST POSITION WITH ALARM ON AND CALL LIGHT IN REACH.
--- NOTE | 2022-09-28 03:31 | NUR ---
STOKER ERECTOR AND SERVICER SUMMARY NO ACUTE EVENTS THROUGHOUT THE NIGHT. A&OX2. PATIENT EFFECTIVELY COMMUNICATES NEEDS. RR EVEN AND UNLABORED ON RA. VSS. PAIN ASSESSED AND MEDICATED PER EMAR. PATIENT DEMONSTREATES GOOD APPETITE AND APPEARED TO SLEEP WELL DURING THIS SHIFT. BED LOW AND LOCKED. CALL LIGHT WITHIN REACH. 1:1 SITTER (THIS INTERVENTION SHOULD BE REVIEWED). THIS RN WILL CONTINUE TO MONITOR.
[2022-09-28 05:53] LABS: BASOPHILS ABSOLUTE AUTO 0.07 K/mm3 (0.00-0.23); BASOPHILS PERCENT AUTO 1 % (0-2); EOSINOPHILS ABSOLUTE AUTO 0.29 K/mm3 (0.00-0.68); EOSINOPHILS PERCENT AUTO 5 % (0-6); Hematocrit 37.7 % (37.0-53.0); Hemoglobin 11.9 g/dL (13.5-17.5); IMMATURE GRAN ABSOLUTE AUTO 0.07 K/mm3 (0.00-0.10); IMMATURE GRAN PERCENT AUTO 1 % (0-1); LYMPHOCYTES ABSOLUTE AUTO 2.55 K/mm3 (0.84-5.20); LYMPHOCYTES PERCENT AUTO 45 % (21-46); MONOCYTES ABSOLUTE AUTO 0.66 K/mm3 (0.16-1.47); MONOCYTES PERCENT AUTO 12 % (4-13); Mean Corpuscular HGB 26.6 pg (26.0-34.0); Mean Corpuscular HGB Conc 31.6 g/dL (31.5-36.5); Mean Corpuscular Volume 84 fL (80-100); Mean Platelet Volume 9.4 fL (9.1-12.4); NEUTROPHILS ABSOLUTE AUTO 1.99 K/mm3 (1.96-9.15); NEUTROPHILS PERCENT AUTO 35 % (41-73); Platelet Count 475 K/mm3 (150-400); RDW Coefficient Variation 15.1 % (11.7-14.2); RDW Standard Deviation 46.5 fL (35.1-46.3); Red Blood Cell Count 4.48 M/mm3 (4.30-5.90); White Blood Cell Count 5.63 K/mm3 (4.00-11.30)
[2022-09-28 06:12] LABS: Bun/Creatinine Ratio 26.8 (12.0-20.0); Calcium, Blood 9.2 mg/dL (8.5-10.1); Creatinine, Blood 0.93 mg/dL (0.60-1.20); Potassium, Blood 3.6 mmol/L (3.5-5.5)
[2022-09-28] MEDS ORDERED: ATOR10 PO (14:22)
[2022-09-28] MEDS ORDERED: Amlodipine Bes2.5 MG PO (14:22)
[2022-09-28] MEDS ORDERED: ZYRTEC10 M2 PO (14:23)
[2022-09-28] MEDS ORDERED: Colace100 MG PO (14:24)
[2022-09-28] MEDS ORDERED: FAMO20 PO (14:25)
[2022-09-28] MEDS ORDERED: FINA5 PO (14:25)
[2022-09-28] MEDS ORDERED: GABA300 PO (14:26)
[2022-09-28] MEDS ORDERED: Prozac40 MG PO (14:26)
[2022-09-28] MEDS ORDERED: Oxcarbazepine300 MG PO (14:27)
[2022-09-28] MEDS ORDERED: LOSA50 PO (14:27)
[2022-09-28] MEDS ORDERED: TAMS.4ER PO (14:28)
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
--- NOTE | 2022-09-29 04:27 | NUR ---
NOODLE MAKER SUMMARY NO ACUTE EVENTS THROUGHOUT THE NIGHT. A&OX3. PATIENT EFFECTIVELY COMMUNICATES NEEDS. MENTATION CONTINUES TO IMPROVE. RR EVEN AND UNLABORED ON RA. VSS. PATIENT IS SAFELY INDEPENDENT IN ROOM. PAIN ASSESSED AND MEDICATED PER EMAR. BED LOW AND LOCKED. CALL LIGHT WITHIN REACH. THIS RN WILL CONTINUE TO MONITOR.
--- NOTE | 2022-09-29 13:28 | NUR ---
DISCHARGE PT DISCHARGED AT 1245. PT EDUCATED ON NEW MEDS AND FOLLOW UP INSTRUCTIONS. PT DENIED FOR HIS MEDS TO BE FAXED TO A PHARMACY, STATING "I WON'T BE TAKING IT". PT GIVEN CLOTHES FOR DISCHARGE. IV REMOVED & INTACT. WHEELED OUT TO [facility] VIA WHEELCHAIR BY THIS RN. NO ACUTE CHANGES IN ASSESSMENT AT THIS TIME.
== END 2022-09-29 12:45 | disposition home or self-care (01) | DRG 917 ==
LOC: ER 12:51 → ICUW 14:20 → MEDS 14:20 → ICUW 14:54 → MEDS 09-22 14:46
PROVIDERS: Emergency Medicine; Internal Medicine; Internal Medicine Critical Care Medicine; Nurse Practitioner Acute Care; Student in an Organized Health Care Education/Training Program; ADMIT Internal Medicine
PROC: 4A133R1 Monitoring of Arterial Saturation, Peripheral, Percutaneous Approach (ICD-10-PCS; principal; 2022-09-17)
PROC: 3E033XZ Introduction of Vasopressor into Peripheral Vein, Percutaneous Approach (ICD-10-PCS; 2022-09-17)
PROC: 0D9670Z Drainage of Stomach with Drainage Device, Via Natural or Artificial Opening (ICD-10-PCS; 2022-09-17)
PROC: 0T9B70Z Drainage of Bladder with Drainage Device, Via Natural or Artificial Opening (ICD-10-PCS; 2022-09-17)
PROC: 5A1945Z Respiratory Ventilation, 24-96 Consecutive Hours (ICD-10-PCS; 2022-09-17)
DX: T40.411A Poisoning by fentanyl or fentanyl analogs, accidental (unintentional), initial encounter (principal); G92.8 Other toxic encephalopathy; J96.01 Acute respiratory failure with hypoxia; J69.0 Pneumonitis due to inhalation of food and vomit; I46.9 Cardiac arrest, cause unspecified; J15.212 Pneumonia due to Methicillin resistant Staphylococcus aureus; J96.02 Acute respiratory failure with hypercapnia; N17.9 Acute kidney failure, unspecified; F15.20 Other stimulant dependence, uncomplicated; G93.1 Anoxic brain damage, not elsewhere classified; T78.2XXA Anaphylactic shock, unspecified, initial encounter; E87.4 Mixed disorder of acid-base balance; E87.1 Hypo-osmolality and hyponatremia; N40.0 Benign prostatic hyperplasia without lower urinary tract symptoms; R68.0 Hypothermia, not associated with low environmental temperature; G31.84 Mild cognitive impairment of uncertain or unknown etiology; I10 Essential (primary) hypertension; R53.81 Other malaise; F11.10 Opioid abuse, uncomplicated; E78.5 Hyperlipidemia, unspecified; R73.9 Hyperglycemia, unspecified; N28.9 Disorder of kidney and ureter, unspecified; R40.0 Somnolence; Z79.899 Other long term (current) drug therapy; Z79.51 Long term (current) use of inhaled steroids; Z59.01 Sheltered homelessness; Z98.890 Other specified postprocedural states; F41.8 Other specified anxiety disorders; T43.651A Poisoning by methamphetamines accidental (unintentional), initial encounter; Z78.1 Physical restraint status
CPT/HCPCS: 36415; 36600; 51702; 70450; 71045; 80048; 80053; 80069; 80202; 81001; 82330; 82550; 82803; 83735; 84100; 84484; 85025; 85027; 87040; 87070; 87077; 87086; 87147; 87186; 87205; 92526; 92610; 93005; 93010; 94002; 94003; 94640; 94664; 94760; 94762; 96365-59; 97110; 97116; 97129; 97130; 97162; 97166; 97530; 97535; 99291-25; A9270; C1751; C9113; G0480; J0295; J0360; J0456; J1650; J2060; J2250; J2704; J3010; J3370; J7030; J7050; J7060; J7120

== ENCOUNTER 2022-10-03 08:08 | Emergency (ER) | payer OTHER ==
[~2022-10-03] VITALS: Ht 172.7 cm; Wt 74.8 kg
[~2022-10-03 08:08] MED LIST changes: +COLACE100 MG PO; +Colace100 MG PO; +LOSA50 PO; +Oxcarbazepine300 MG PO; +ZYRTEC10 M2 PO
[2022-10-03] MEDS ORDERED: ATOR10 PO (09:00)
[2022-10-03] MEDS ORDERED: AMLODIPINE BES2.5 MG PO (09:00)
[2022-10-03] MEDS ORDERED: FINA5 PO (09:00)
[2022-10-03 09:47] LABS: BASOPHILS ABSOLUTE AUTO 0.04 K/mm3 (0.00-0.23); BASOPHILS PERCENT AUTO 1 % (0-2); EOSINOPHILS ABSOLUTE AUTO 0.05 K/mm3 (0.00-0.68); EOSINOPHILS PERCENT AUTO 1 % (0-6); Hematocrit 35.6 % (37.0-53.0); Hemoglobin 11.4 g/dL (13.5-17.5); IMMATURE GRAN ABSOLUTE AUTO 0.07 K/mm3 (0.00-0.10); IMMATURE GRAN PERCENT AUTO 1 % (0-1); LYMPHOCYTES ABSOLUTE AUTO 1.18 K/mm3 (0.84-5.20); LYMPHOCYTES PERCENT AUTO 15 % (21-46); MONOCYTES ABSOLUTE AUTO 0.83 K/mm3 (0.16-1.47); MONOCYTES PERCENT AUTO 10 % (4-13); Mean Corpuscular HGB 26.7 pg (26.0-34.0); Mean Corpuscular Volume 83 fL (80-100); Mean Platelet Volume 9.2 fL (9.1-12.4); NEUTROPHILS ABSOLUTE AUTO 5.99 K/mm3 (1.96-9.15); NEUTROPHILS PERCENT AUTO 73 % (41-73); Platelet Count 429 K/mm3 (150-400); RDW Coefficient Variation 15.6 % (11.7-14.2); Red Blood Cell Count 4.27 M/mm3 (4.30-5.90); White Blood Cell Count 8.16 K/mm3 (4.00-11.30)
[2022-10-03 10:04] LABS: Albumin/Globulin Ratio 0.7 (0.8-1.8); Bilirubin, Total 0.2 mg/dL (0.1-1.0); Bun/Creatinine Ratio 21.1 (12.0-20.0); Calcium, Blood 8.9 mg/dL (8.5-10.1); Creatinine, Blood 0.99 mg/dL (0.60-1.20); Globulin, Blood 4.1 g/dL (2.2-4.0); Potassium, Blood 3.5 mmol/L (3.5-5.5); Total Protein, Blood 7.1 g/dL (6.4-8.2)
== END 2022-10-03 13:00 | disposition home or self-care (01) ==
LOC: ER 08:08
PROVIDERS: Physician Assistant
DX: S01.01XA Laceration without foreign body of scalp, initial encounter (principal); Z23 Encounter for immunization; Z79.899 Other long term (current) drug therapy; Z77.098 Contact with and (suspected) exposure to other hazardous, chiefly nonmedicinal, chemicals; Y08.89XA Assault by other specified means, initial encounter
CPT/HCPCS: 36415; 70450; 72125; 80053; 82375; 85025; 90714; A9270

== ENCOUNTER 2022-10-21 20:41 | Inpatient (IN) | payer OTHER ==
[~2022-10-21] VITALS: Ht 170.2 cm; Wt 72.8 kg
[~2022-10-21 20:41] MED LIST changes: +AMLODIPINE BES2.5 MG PO
[2022-10-21 21:38] LABS: BASOPHILS ABSOLUTE AUTO 0.03 K/mm3 (0.00-0.23); BASOPHILS PERCENT AUTO 0 % (0-2); EOSINOPHILS ABSOLUTE AUTO 0.03 K/mm3 (0.00-0.68); EOSINOPHILS PERCENT AUTO 0 % (0-6); Hematocrit 42.4 % (37.0-53.0); IMMATURE GRAN ABSOLUTE AUTO 0.03 K/mm3 (0.00-0.10); IMMATURE GRAN PERCENT AUTO 0 % (0-1); LYMPHOCYTES PERCENT AUTO 8 % (21-46); MONOCYTES PERCENT AUTO 6 % (4-13); Mean Corpuscular HGB 26.7 pg (26.0-34.0); Mean Corpuscular HGB Conc 30.7 g/dL (31.5-36.5); Mean Corpuscular Volume 87 fL (80-100); Mean Platelet Volume 9.7 fL (9.1-12.4); NEUTROPHILS ABSOLUTE AUTO 6.24 K/mm3 (1.96-9.15); NEUTROPHILS PERCENT AUTO 85 % (41-73); Platelet Count 225 K/mm3 (150-400); RDW Coefficient Variation 15.1 % (11.7-14.2); RDW Standard Deviation 48.5 fL (35.1-46.3); Red Blood Cell Count 4.87 M/mm3 (4.30-5.90); White Blood Cell Count 7.33 K/mm3 (4.00-11.30)
[2022-10-21 21:59] LABS: Alanine Aminotransfer (ALT/SGP 21 U/L (12-78); Albumin, Blood 3.2 g/dL (3.4-5.0); Albumin/Globulin Ratio 0.7 (0.8-1.8); Alk Phos 116 U/L (50-136); Anion Gap 4 mmol/L (6-16); Aspartate Aminotrans (AST/SGOT 22 U/L (12-37); Bilirubin, Total 0.2 mg/dL (0.1-1.0); Blood Urea Nitrogen 23 mg/dL (8-24); Bun/Creatinine Ratio 17.3 (12.0-20.0); CO2, Blood 29 mmol/L (21-32); Calcium, Blood 9.4 mg/dL (8.5-10.1); Chloride, Blood 105 mmol/L (98-108); Creatinine, Blood 1.33 mg/dL (0.60-1.20); Ethanol (Alcohol), Blood, Med <3 mg/dL; Globulin, Blood 4.4 g/dL (2.2-4.0); Glomerular Filtration Rate 63 (60-); Glucose, Blood 156 mg/dL (70-99); Potassium, Blood 4.2 mmol/L (3.5-5.5); Sodium, Blood 138 mmol/L (136-145); Total Protein, Blood 7.6 g/dL (6.4-8.2)
[2022-10-21 23:15] LABS: CPK Creatine Kinase 142 U/L (39-308)
[2022-10-22 01:28] LABS: U Amphetamine Screen DETECTED; U Barbituate Screen Not Detected; U Benzodiazapine Screen Not Detected; U Buprenorphine Screen Not Detected; U Cannabinoids Screen Not Detected; U Cocaine Screen Not Detected; U Methadone Screen Not Detected; U Methamphetamine Screen DETECTED; U Opiates Screen Not Detected; U Oxycodone Screen Not Detected; U Phencyclidine Screen Not Detected; U Propoxyphene Screen Not Detected
[2022-10-22 01:33] LABS: Source, Urine Straight Cath
[2022-10-22 01:36] LABS: Bilirubin, Urine Neg (Neg); Blood, Urine Neg (Neg); Glucose Qualitative, Urine Neg (Neg); Ketones, Urine Neg (Neg); Leukocyte Esterase, Urine Neg (Neg); Nitrite, Urine Neg (Neg); Protein, Urine 1+ (Neg); Specific Gravity, Urine 1.025 (1.003-1.022); Urobilinogen, Urine NORM (Normal)
[2022-10-22 01:45] LABS: Appearance, Urine Clear (Clear); Color, Urine Yellow (P-Yellow)
[2022-10-22 03:13] VITALS: BP 124/87
--- NOTE | 2022-10-22 03:35 | NUR ---
ADMIT NOTE 57 YR OLD MALE ADMITTED TO FLOOR FROM THE ED WITH DX OF AMS. ED RN REPORTED PT HX FALL WITH ABRASION OF HEAD, PINPOINT PUPILS AND GIVEN NARCAN EITHER BY THE AMBULANCE OR PRIOR TO ADMIT TO FLOOR. PT DOES NOT SEEM TO TRACK QUESTIOONS AND QUICKLY FALLS BACK TO SLEEP. NOTE FEVER: T: 100 DEG F TEMPORAL. HR 101, OTHERWISE VSS. DISCUSSED CCALL LIGHT USE, CALL LIGHT IN REACH. ISOLATION PRECAUTIONS INITIATED - SE MD ORDERS.
[2022-10-22] MEDS ORDERED: ZYRTEC10 M2 PO (03:49)
[2022-10-22] MEDS ORDERED: DOCU100 PO (03:50)
[2022-10-22] MEDS ORDERED: FAMO20 PO (03:50)
[2022-10-22] MEDS ORDERED: PROZAC40 MG PO (03:51)
[2022-10-22] MEDS ORDERED: LOSARTAN POTAS100 M1 PO (03:52)
[2022-10-22] MEDS ORDERED: Gabapentin600 MG PO (03:52)
[2022-10-22] MEDS ORDERED: Oxcarbazepine300 MG PO (03:53)
--- NOTE | 2022-10-22 04:27 | NUR ---
RESPONSIVENESS TO VERBAL STIMULUS. NARCAN ADMIN, MORE RESPONSIVE, BUT STILL UNABLE TO FOLLOW FINGER WITH EYES, EYES PUPILS REMAIN PINPOINT AND UNRESPONSIVE. IVF INFUSING. VOICED UNDERSTANDING OF USE OF CALL LIGHT. CALL LIGHT IN REACH. WILL CONTINUE TO MONITOR. CHARGE NURSE AWARE OF PT SITUATION. WILL DISCUSS SITUATION WITH
--- NOTE | 2022-10-22 04:38 | NUR ---
DISCUSSED SITUATION WITH MD ALFREDITO ORDERED TO GIVE ANOTHER DOSE OF NARCAN NOW.
--- NOTE | 2022-10-22 05:26 | NUR ---
SCENIC ARTS SUPERVISOR SUMMARY ADMITTED EARLIER IN THE SHIFT WITH DX CHANGED TO PNA WITH HYPOXIA, LACTIC ACIDOSIS AND STEFFEN. WAS GIVEN NARCAN BY THE AMBULANCE CREW FOR LACK OF RESPONSIVENESS, PIN POINTED PUPILS. LAB RESULTS POSITIVE METH. ARRIVED TO THE FLOOR FROM THE ED AND RESPONSIVENESS WAS DECREASED WELL, NARCAN GIVEN, STATED HE WAS FEELING OK, DENIED PAIN, DENIED HAVING TAKEN ANY DRUGS THAT WOULD CAUSE HIM TO HAVE SLOW/DECREASED REACTIONS. SUPERVISOR CELL MAINTENANCE, PLANTAR AND DORSI FLEX EQUAL. DENIED LOSS OF FEELING AND PAIN. BUT PUPILS REMAIN PINPOINT AND FIXED AND UNRESPONSIVE TO LIGHT. APPEARED UNABLE TO FOLLOW FINGER WITH EYES, JUST STARED AHEAD AND REQUIRED MULTIPLE VERBAL CUES TO RESPOND/WAKE UP. IVF INFUSING. MD NOTIFIED OF SAID RESPONSES, AND ORDERED ANOTHER DOSE OF NARCAN TO BE GIVEN, WHICH WAS. RESPONSE IMPROVED BUT STILL UNABLE TO FOLLOW FINGER WITH EYES AND THEY REMAIN PINPOINT. QUICK TO FALL ASLEEP, DIFFICULT TO REMAIN FOCUSED OF VERBAL COMMANDS. DENIED DISTRESS. ELEVATED HR AND TEMP, OTHERWISE VSS. PLACED ON ISOLATION PRECAUTIONS PER MD ORDERS, AWAITING SPUTUM CX TO BE OBTAINED. CALL LIGHT IN REACH. WILL CONTINUE TO MONITOR
[2022-10-22 05:34] LABS: BASOPHILS ABSOLUTE AUTO 0.02 K/mm3 (0.00-0.23); BASOPHILS PERCENT AUTO 0 % (0-2); EOSINOPHILS ABSOLUTE AUTO 0.03 K/mm3 (0.00-0.68); EOSINOPHILS PERCENT AUTO 1 % (0-6); Hemoglobin 11.1 g/dL (13.5-17.5); IMMATURE GRAN ABSOLUTE AUTO 0.02 K/mm3 (0.00-0.10); IMMATURE GRAN PERCENT AUTO 0 % (0-1); LYMPHOCYTES ABSOLUTE AUTO 0.61 K/mm3 (0.84-5.20); LYMPHOCYTES PERCENT AUTO 10 % (21-46); MONOCYTES ABSOLUTE AUTO 0.26 K/mm3 (0.16-1.47); MONOCYTES PERCENT AUTO 4 % (4-13); Mean Corpuscular HGB 26.9 pg (26.0-34.0); Mean Corpuscular HGB Conc 31.7 g/dL (31.5-36.5); Mean Corpuscular Volume 85 fL (80-100); Mean Platelet Volume 9.4 fL (9.1-12.4); NEUTROPHILS PERCENT AUTO 84 % (41-73); Platelet Count 158 K/mm3 (150-400); RDW Coefficient Variation 15.3 % (11.7-14.2); RDW Standard Deviation 47.3 fL (35.1-46.3); Red Blood Cell Count 4.13 M/mm3 (4.30-5.90); White Blood Cell Count 5.94 K/mm3 (4.00-11.30)
[2022-10-22 06:00] LABS: Albumin, Blood 2.6 g/dL (3.4-5.0); Albumin/Globulin Ratio 0.7 (0.8-1.8); Bilirubin, Total 0.4 mg/dL (0.1-1.0); Bun/Creatinine Ratio 19.6 (12.0-20.0); Calcium, Blood 8.4 mg/dL (8.5-10.1); Creatinine, Blood 1.02 mg/dL (0.60-1.20); Globulin, Blood 3.6 g/dL (2.2-4.0); Potassium, Blood 3.9 mmol/L (3.5-5.5); Total Protein, Blood 6.2 g/dL (6.4-8.2)
[2022-10-22 08:02] VITALS: BP 104/76
--- NOTE | 2022-10-22 14:45 | NUR ---
Patient is lying in bed and alert. I had several visits with patient during his last hospital stay, so because therapeutic alliance is already established, conversation was open and honest. He expresses, with tears, that he knows he does not have many more chances to change the path he is on. He states his desire to be a better person and we explore ways to get there. Patient has some retention issues so I repeat what positive steps forward might look and how he can get there. We discuss coping skills, resources and spiritual beliefs. Patient speaks of his desperation and his fears. I provide therapeutic listening, encouraging gentle psychotherapist counselor mixed with hard reality and prayer. Patient responded well and showed signs of catharsis and resolve. I will continue to remain available to patient and family.
[2022-10-22 16:18] VITALS: BP 127/87
--- NOTE | 2022-10-22 17:51 | NUR ---
SHIFT SUMMARY PT VERY CONFUSED ABOUT WHERE HE IS EACH TIME HE IS ASKED TODAY. 1ST HE WAS IN [place] IN THE [facility], LATER HE WAS ON A METAL PLATE IN THE [facility]. SLEEPING WHEN LEFT ALONE BUT ROUSES EASILY TO NAME. FRIENDLY AND FOLLOWS DIRECTIONS APPROPRIATELY. DENIES PAIN OR SOB. KEPT REMOVING O2 AND SATS CHECKED AT 84-86% ON ROOM AIR. ENCOURAGED TO KEEP O2 ON AT ALL TIMES. DID NEED REMINDERS OF THIS.
[2022-10-22 20:08] VITALS: BP 135/90
[2022-10-23 03:08] VITALS: BP 148/96
--- NOTE | 2022-10-23 04:59 | NUR ---
SHIFT SUMMERY. PT ALERT AWAKES FAIRLY WELL. PT ORIENTED X2. PT JUMMPING OUT OF BED TO GO TO BR BUT WILL STOP AND ALLOW INTERVENTIONS TO PREVENT IV FORM BEING PULLED OUT. PT BEING COOPERATIVE. CALL LIGHT IN REACH AND BED ALARM ON. PT WILL AT TIMES USE URINAL IN BED.
[2022-10-23 07:13] LABS: Hemoglobin 11.4 g/dL (13.5-17.5); Mean Corpuscular HGB 27.4 pg (26.0-34.0); Mean Corpuscular HGB Conc 32.6 g/dL (31.5-36.5); Mean Corpuscular Volume 84 fL (80-100); Platelet Count 166 K/mm3 (150-400); RDW Coefficient Variation 15.1 % (11.7-14.2); Red Blood Cell Count 4.16 M/mm3 (4.30-5.90)
[2022-10-23 07:27] VITALS: BP 154/95
[2022-10-23 07:29] LABS: Bun/Creatinine Ratio 14.4 (12.0-20.0); Calcium, Blood 8.9 mg/dL (8.5-10.1); Creatinine, Blood 1.04 mg/dL (0.60-1.20); Potassium, Blood 3.6 mmol/L (3.5-5.5)
[2022-10-23 10:23] LABS: Vancomycin, Trough 18.2 ug/mL (5.0-10.0)
[2022-10-23 15:24] VITALS: BP 152/95
--- NOTE | 2022-10-23 18:31 | NUR ---
SHIFT SUMMARY PT A&O X 4. VSS. PT HAS CLEARED MENTALLY TODAY. PIV IN R FOOT. AT END OF SHIFT PIV BEGAN LEAKING, PT NOTIFIED RN LATE ARRIVING AZITHROMYCIN WAS TO BEGIN INFUSING. ATTEMPTED TO START A NEW IV WITH NO SICCESS. PT WILL LIKELY REQUIRE A POWER GLIDE. HEAD & CHEST CT'S DONE TODAY. CHEST CT SHOWING PNUEMONIA. 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 HAS BEEN PLEASANT & COPERATIVE WITH ALL CARE. PT IS INDEPENDENT IN THE ROOM FOR RESTROOM USE. ALTHOUGH HAS BEEN CALLING FOR ASSISTANCE D/T IV IN R FOOT. PT SATS ARE NOW 99% ON RA. CALL LIGHT WITHIN REACH.
[2022-10-23 19:35] VITALS: BP 150/99
--- NOTE | 2022-10-24 01:15 | NUR ---
PTS IV WENT BAD JUST BEFORE CHANGE OF SHIFT AND DAY RN ATTEMPTED TO PLACE ANOTHER BUT WAS UNSUCESSFULL. PLACING A POWER GLIDE WAS DISCUSSED. DEBRA SHAH ATTEMPTED TO PLACE AN IV BUT UNABLE AND PT REFUSED TO ALLOW ANYONE TO ATTEMPT AGAIN. PT HAS 3 IV ANTIBIOTICS BUT STILL UNWILLING TO ALLOW ATTEMPT TO START AN IV. DR BLEDSOE CALLED, AND HE SAID TO LEAVE OUT IV FOR NOW AND RE-EVALUATE SITUATION IN THE MORNING.
--- NOTE | 2022-10-24 01:28 | NUR ---
SHIFT SUMMERY, PT RESTING IN BED, PT SEEMS TO BE SLEEPING WELL. PT ALERT AND ORIENTED 2-3. PT REFUSING TO HAVE IV PLACED AT THIS TIME. CALL LIGHT IN REACH , IV ANTIBIOTICS ARE NOT ABLE TO BE GIVEN.
[2022-10-24 02:08] VITALS: BP 150/100
[2022-10-24 08:09] VITALS: BP 151/105
[2022-10-24 08:38] LABS: BASOPHILS ABSOLUTE AUTO 0.05 K/mm3 (0.00-0.23); BASOPHILS PERCENT AUTO 1 % (0-2); EOSINOPHILS ABSOLUTE AUTO 0.23 K/mm3 (0.00-0.68); EOSINOPHILS PERCENT AUTO 4 % (0-6); Hematocrit 40.5 % (37.0-53.0); Hemoglobin 13.1 g/dL (13.5-17.5); IMMATURE GRAN ABSOLUTE AUTO 0.05 K/mm3 (0.00-0.10); IMMATURE GRAN PERCENT AUTO 1 % (0-1); LYMPHOCYTES ABSOLUTE AUTO 0.97 K/mm3 (0.84-5.20); LYMPHOCYTES PERCENT AUTO 15 % (21-46); MONOCYTES ABSOLUTE AUTO 0.45 K/mm3 (0.16-1.47); MONOCYTES PERCENT AUTO 7 % (4-13); Mean Corpuscular HGB 26.9 pg (26.0-34.0); Mean Corpuscular HGB Conc 32.3 g/dL (31.5-36.5); Mean Corpuscular Volume 83 fL (80-100); Mean Platelet Volume 9.7 fL (9.1-12.4); NEUTROPHILS ABSOLUTE AUTO 4.68 K/mm3 (1.96-9.15); NEUTROPHILS PERCENT AUTO 73 % (41-73); Platelet Count 225 K/mm3 (150-400); RDW Coefficient Variation 14.9 % (11.7-14.2); RDW Standard Deviation 45.4 fL (35.1-46.3); Red Blood Cell Count 4.87 M/mm3 (4.30-5.90); White Blood Cell Count 6.43 K/mm3 (4.00-11.30)
[2022-10-24 08:54] LABS: Calcium, Blood 9.6 mg/dL (8.5-10.1); Creatinine, Blood 0.9 mg/dL (0.60-1.20)
[2022-10-24 15:30] VITALS: BP 155/107
--- NOTE | 2022-10-24 17:42 | NUR ---
Attempted to see pt several times today, unable to catch him awake. Plan to see him tomorrow, as well as find out more about pt's family dynamics/support system.
--- NOTE | 2022-10-24 18:04 | NUR ---
MAKES NEEDS KNOWN, NO ACUTE CHANGES, COOPERATIVE TO CARE, ANTIBIOTICS CHANGED TO PO, NO IV NEEDED ORDER. POSSIBLE DISCHARGE TOMORROW, CALL LIGHT WITH IN REACH
[2022-10-24 19:53] VITALS: BP 150/105
--- NOTE | 2022-10-25 03:04 | NUR ---
SHIFT SUMMERY. PT WENT TO SLEEP SHORTLY AFTERF START OF SHIFT. PT LATTER GOT UP TO BR AND MEDS GIVEN, PT REQUESTED AND SNACK AND AFTER EATTING PT BACK TO SLEEP. PT SEEMS TO BE COMFORTABLE AND RESPERATIONS UNLABORED. CALL LIGHT IN REACH PT AT [facility] TO BR.
[2022-10-25 05:03] VITALS: BP 136/104
[2022-10-25 05:43] LABS: Bun/Creatinine Ratio 17.8 (12.0-20.0); Calcium, Blood 10.2 mg/dL (8.5-10.1); Creatinine, Blood 0.95 mg/dL (0.60-1.20); Potassium, Blood 4.3 mmol/L (3.5-5.5)
--- NOTE | 2022-10-25 15:31 | NUR ---
Met with pt this morning, and he was very pleasant, but unable to answer most questions. I asked if he has any family, he stated "No". However, he does have an "Aunt Brianna" listed on his facesheet, along with a Vivienne. I mentioned these to the pt, and it seemed to remind him he does have an aunt. When I asked about Vivienne, he stated, "I live with some lady, I think that's her". He gave permission for me to contact both of them, and discuss his care needs. Vivienne indicated that she has and continues to be willing to assist pt in his care needs, including medication managment. She states he has been living with her on and off for the past few months, but unfortunately didn't remember this after his last hospital discharge, and [facility]. She states once she found out where the pt was, she was able to bring him back home, and that she is the one who called an ambulance for him in the first place. I was also able to reach the pt's Aunt Brianna, who tells me she assisted in raising the pt as a child, as he was abandoned by his biological mother and left with his stepdad, Brianna's brother. Both Vivienne and Brianna state they didn't know the other existed, and they are both extremely grateful to receive any update at all on the patient, as Brianna stated, "I was sure he was because I never heard from him again after his last hospitalization, and had no way to reach him". Plan to request assistance tomorrow from Karen, oncology social worker to assist in identifying possible resources for the pt, as his memory and ability to receive and process information. He was confused as to the current year, and was unable to tell me the name of either his aunt or his roommate. Vivienne is willing to participate in pt's discharge planning, discharge medications and follow up appointments. Moving forward, Vivienne and Brianna will communicate and assist pt as needed, as he is clearly currently decisionally incapacitated at this time, with most recent MMSE of 14.
[2022-10-25 16:03] VITALS: BP 141/99
--- NOTE | 2022-10-25 16:48 | NUR ---
SHIFT SUMMARY PT AOX2-3, HE IS NOT A GREAT HISTORIAN. HE IS CALM AND SOMEWHAT WITHDRAWN, HE DOES NOT CALL OFTEN. HE HAS HAD NO COMPLAINTS THIS SHIFT. PLAN IS FOR HIM TO D/C TO HIS FRIENDS HOUSE, ALLIE, WHO IS HERE NOW SPEAKING WITH PALLIATIVE CARE. CALL LIGHT IS WITHIN REACH, BED IN THE LOWEST POSITION. WILL REPORT TO ONCOMING NURSE.
[2022-10-25 19:32] VITALS: BP 128/89
[2022-10-26 04:53] VITALS: BP 120/86
--- NOTE | 2022-10-26 05:02 | NUR ---
SHIFT SUMMERY, PT ASLEEPIN BED, PT AWOKE EASILY TO TAKE MEDS, PT VERY COOPERATIVE. PT SEEMED TO BE COMFORTABLE AND RESPERATONS EVEN AND UNLABORED. PT OCCASIONALLY GETTING UP TO GO TO BR. CALL LIGHT IN REACH.
[2022-10-26 05:08] LABS: Hematocrit 42.5 % (37.0-53.0); Mean Corpuscular HGB 27.2 pg (26.0-34.0); Mean Corpuscular HGB Conc 32.9 g/dL (31.5-36.5); Mean Corpuscular Volume 83 fL (80-100); Mean Platelet Volume 9.6 fL (9.1-12.4); Platelet Count 289 K/mm3 (150-400); RDW Coefficient Variation 14.9 % (11.7-14.2); RDW Standard Deviation 45.3 fL (35.1-46.3); Red Blood Cell Count 5.15 M/mm3 (4.30-5.90); White Blood Cell Count 6.52 K/mm3 (4.00-11.30)
[2022-10-26 05:24] LABS: Bun/Creatinine Ratio 17.3 (12.0-20.0); Calcium, Blood 9.5 mg/dL (8.5-10.1); Creatinine, Blood 0.92 mg/dL (0.60-1.20)
[2022-10-26 07:55] VITALS: BP 110/86
[2022-10-26] MEDS ORDERED: LEVAQUIN750 MG PO (11:38)
[2022-10-26] MEDS ORDERED: VISBIOME 112.51 EACH PO (11:40)
--- NOTE | 2022-10-26 11:57 | NUR ---
PATIENT TO BE DISCHARGED. CALLED HIS FRIEND ALLIE GARCÍA TO SET UP TIME FOR HIM TO BE PICKED UP. NO ANSWER, UNABLE TO LEAVE VM. WILL TRY AGAIN LATER.
--- NOTE | 2022-10-26 14:09 | NUR ---
PATIENT DISCHARGED TO HOME, ACCOMPANIED BY FRIEND/CG ALLIE GARCÍA. PT ONLY UNDERSTANDS PART OF INSTRUCTIONS, BUT ALLIE VERBALIZED UNDERSTANDING. MEDICATIONS FAXED TO [facility]. HAD NO IV ACCESS. OFF UNIT VIA W/C AT 1342. NO BELONGINGS LEFT BEHIND IN ROOM.
--- NOTE | 2022-10-26 15:59 | NUR ---
Placed call to pt's Aunt Joaquina, pt has been discharged home with Vivienne, who sat with pt and bedside RN at discharge to review discharge medications and discharge instructions. She will assist with pt's meds and appointments moving forward. Packets given to Vicky re: guardianship, medicaid application, and she v/u.
== END 2022-10-26 13:48 | disposition home or self-care (01) | DRG 871 ==
LOC: ER 20:41 → MEDS 20:42
PROVIDERS: Family Medicine; Student in an Organized Health Care Education/Training Program; ADMIT Internal Medicine
DX: A41.9 Sepsis, unspecified organism (principal); G92.8 Other toxic encephalopathy; J69.0 Pneumonitis due to inhalation of food and vomit; J96.01 Acute respiratory failure with hypoxia; J18.9 Pneumonia, unspecified organism; N17.9 Acute kidney failure, unspecified; E87.20 Acidosis, unspecified; E87.1 Hypo-osmolality and hyponatremia; E86.0 Dehydration; Z59.00 Homelessness unspecified; F41.3 Other mixed anxiety disorders; Z51.5 Encounter for palliative care; R65.20 Severe sepsis without septic shock; G31.84 Mild cognitive impairment of uncertain or unknown etiology; I10 Essential (primary) hypertension; N40.0 Benign prostatic hyperplasia without lower urinary tract symptoms; E78.5 Hyperlipidemia, unspecified; F15.10 Other stimulant abuse, uncomplicated; Z98.890 Other specified postprocedural states; Z79.899 Other long term (current) drug therapy
CPT/HCPCS: 36415; 51701; 70450; 71045; 71046; 71250; 80048; 80053; 80202; 82550; 83605; 84145; 85025; 85027; 87040; 93005; 93010; 96365; 96366; 96367; 99285-25; A9270; G0480; J0456; J0692; J0696; J1650; J2310; J3370; J7030; J7050

== ENCOUNTER 2023-11-20 12:10 | Emergency (ER) | payer SELFPAY ==
[~2023-11-20] VITALS: Ht 170.2 cm; Wt 79.4 kg
[~2023-11-20 12:10] MED LIST changes: +DOCU100 PO; +Gabapentin600 MG PO; +LEVAQUIN750 MG PO; +LOSARTAN POTAS100 M1 PO; +PROZAC40 MG PO; +VISBIOME 112.51 EACH PO
[2023-11-20] MEDS ORDERED: Acetaminophen 500 MG Tab PO ONE (12:25)
[2023-11-20] MEDS ORDERED: Ketorolac Tromethamine 15mg Vial IV ONE (12:25)
[2023-11-20] MEDS ORDERED: NS 1,000 ML IV SCH (12:25)
[2023-11-20] MEDS ORDERED: Methocarbamol 500 MG Tab PO ONE (12:25)
[2023-11-20 12:49] LABS: BASOPHILS ABSOLUTE AUTO 0.06 K/mm3 (0.00-0.23); BASOPHILS PERCENT AUTO 1 % (0-2); EOSINOPHILS PERCENT AUTO 2 % (0-6); Hematocrit 39.7 % (37.0-53.0); Hemoglobin 13.7 g/dL (13.5-17.5); IMMATURE GRAN ABSOLUTE AUTO 0.03 K/mm3 (0.00-0.10); IMMATURE GRAN PERCENT AUTO 1 % (0-1); LYMPHOCYTES ABSOLUTE AUTO 1.85 K/mm3 (0.84-5.20); LYMPHOCYTES PERCENT AUTO 36 % (21-46); MONOCYTES ABSOLUTE AUTO 0.57 K/mm3 (0.16-1.47); MONOCYTES PERCENT AUTO 11 % (4-13); Mean Corpuscular HGB 30.4 pg (26.0-34.0); Mean Corpuscular HGB Conc 34.5 g/dL (31.5-36.5); Mean Corpuscular Volume 88 fL (80-100); Mean Platelet Volume 10.7 fL (9.1-12.4); NEUTROPHILS PERCENT AUTO 50 % (41-73); Platelet Count 217 K/mm3 (150-400); RDW Coefficient Variation 13.1 % (11.7-14.2); RDW Standard Deviation 42.3 fL (35.1-46.3); Red Blood Cell Count 4.51 M/mm3 (4.30-5.90); White Blood Cell Count 5.21 K/mm3 (4.00-11.30)
[2023-11-20 13:10] LABS: Albumin, Blood 3.9 g/dL (3.4-5.0); Bilirubin, Total 0.6 mg/dL (0.1-1.0); Bun/Creatinine Ratio 16.4 (12.0-20.0); Calcium, Blood 9.8 mg/dL (8.5-10.1); Creatinine, Blood 1.1 mg/dL (0.60-1.20); Globulin, Blood 3.8 g/dL (2.2-4.0); Potassium, Blood 3.8 mmol/L (3.5-5.5); Total Protein, Blood 7.7 g/dL (6.4-8.2)
[2023-11-20 14:45] VITALS: BP 114/89
[2023-11-20] MEDS ORDERED: GABA300 PO (15:35)
== END 2023-11-20 15:28 ==
LOC: ER 12:10
PROVIDERS: Emergency Medicine
DX: R07.89 Other chest pain (principal); Z79.899 Other long term (current) drug therapy; I10 Essential (primary) hypertension; E78.5 Hyperlipidemia, unspecified; I25.2 Old myocardial infarction
CPT/HCPCS: 71045; 80053; 83690; 84484; 85025; 85379; A9270; J1885; J7030